=== PATIENT | male | born 1945 | race Caucasian/White ===

== ENCOUNTER 2023-01-22 15:38 | Emergency (ER) | payer MEDICARE, SELFPAY ==
[2023-01-22] VITALS (7 sets, daily range): BP systolic 127; BP diastolic 70; PULSE 63; RESP 18; TEMP 36.6; O2SAT 96–99
--- NOTE | 2023-01-22 16:13 | ED.GENADUL_ITS ---
Discharge Plan Disposition Patient Disposition: Home Discharge Details Clinical Impression: Acute asthma exacerbation Primary Care Provider: [place],Local ED Provider: Woody Montero Home Meds and New Rx's Prescriptions: New prednisone 50 mg tablet 50 mg PO DAILY 4 Days Qty: 4 0RF Continued tamsulosin 0.4 mg Capsule 0.8 mg PO DAILY albuterol 90 mcg/actuation Aerosol 2 mcg INHALATION PRN PRN rosuvastatin 5 mg Tablet 5 mg PO DAILY fluticasone furoate-vilanterol [Breo Ellipta] 100-25 mcg/dose Blister With Device 1 inh INHALATION DAILY Discharge Instructions Instructions: Asthma (ED) Additional Instructions: Please read all of the information that accompanies these instructions. You were seen in the emergency department for your shortness of breath. You most likely have an asthma exacerbation for which you should continue using your albuterol as previously prescribed. A prescription has been sent for several days of prednisone to your pharmacy. Please schedule an appointment with your primary care provider next week as needed. Please return to the emergency department if develop worsening shortness of breath chest pain fevers or have any other concerns.. Discharge Data Discharge Date/Time-TO BE ENTERED AT DEPARTURE: 01/22/23 17:31 Medical Decision Making This is an overall very well-appearing normothermic and not tachycardic nor hypoxic 78-year-old male with history of asthma with prolonged expiratory phase and mild wheeze concerning for acute exacerbation of reactive airway disease. No chest pain to suggest ACS. Not tachycardic nor does he have any risk factors for DVT so I am not concerned for PE. Not hypoxic so anticipate the patient will be appropriate for discharge. Patient is speaking in complete sentences so we will defer venous blood gas at this point time as I am not concerned for acute hypercarbia. Will attempt symptomatic treatment with prednisone and nebulized ipratropium albuterol and reassess. Patient is from [facility] and reports that he will be in the area for the next several days. Anticipate discharging the patient with a burst of prednisone giving him return indications and outpatient follow-up later this week and his PCP as needed. 5:15 PM Patient felt markedly improved following nebulized albuterol/ipratropium. On reassessment he no longer had prolonged expiratory phase. His chest x-ray was read as showing no acute cardiopulmonary findings. He did have a 2 wedge compression fracture age-indeterminate. He denies any back pain and any recent falls. I advised him to return to the emergency department if he developed any worsening shortness of breath fevers or had any other concerns. Otherwise will discharge with short burst of prednisone total of 5 days. He reports that he has albuterol that he can use as needed. HPI General Date/Time Provider Initiated Documentation: 01/22/23 16:02 . HPI Narrative: This is a 78-year-old male with history of reactive airway disease on outpatient daily Breo inhaler with as needed albuterol now with wheezing cough and increased shortness of breath. He says that he has had a cough and a runny nose for the past 4 days. 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 He has never had a PE nor DVT. He has been hospitalized in the past for exacerbation of reactive airway disease but this was approximately 20 years ago. He denies routine tobacco. He has had no fevers. He does have some chest discomfort secondary to coughing but he denies chest pain and syncope. He is in the area through the remainder of the week. Related Data Home Medications Medication Instructions Recorded Confirmed albuterol 90 mcg/actuation aerosol 2 mcg inhalation PRN PRN 01/22/23 01/22/23 inhaler fluticasone furoate 100 1 inh inhalation DAILY 01/22/23 01/22/23 mcg-vilanterol 25 mcg/dose inhalation powder (Breo Ellipta) prednisone 50 mg tablet 50 mg PO DAILY 4 days #4 tabs 01/22/23 rosuvastatin 5 mg tablet 5 mg PO DAILY 01/22/23 01/22/23 tamsulosin 0.4 mg capsule 0.8 mg PO DAILY 01/22/23 01/22/23 Previous Rx's Medication Instructions Recorded prednisone 50 mg tablet 50 mg PO DAILY 4 days #4 tabs 01/22/23 Allergies Allergy/AdvReac Type Severity Reaction Status Date / Time No Known Allergies Allergy Unverified 01/22/23 15:52 General Stated Complaint: RespSymp TUNDE: 3 PFSH All Active Problems (Updated 01/22/23 @ 17:23 by Woody Montero MD) Acute asthma exacerbation (Acute) Social History Smoking/Tobacco Use Status: Never Smoking risk assessment performed?: Yes Alcohol Intake: current Alcohol Intake frequency: 3 or more drinks per day Alcohol type: wine Substance use type: does not use Exam Narrative Exam Narrative: General: Well-appearing in no acute distress speaking in complete sentences. Head: Normocephalic, atraumatic. Eye: Pupils equal, round reactive to light. Extraocular eye movements intact. No conjunctival injection. No scleral icterus. Ear, nose, mouth, throat: Grossly normal inspection. Normal voice, handling secretions normally. Neck: Trachea midline. Cardiovascular: Well-perfused distal extremities. Regular rate and rhythm Respiratory: Nonlabored respiration. Mildly prolonged expiratory phase with mild end expiratory wheeze. No adventitious breath sounds. No rhonchi. Gastrointestinal: Nondistended abdomen. Musculoskeletal: No edema. Moving all 4 extremities spontaneously. Skin: Normal for age and race, grossly normal temperature and turgor. No acute rash. Neurologic: Alert and appropriate, no apparent acute deficits. Psychiatric: Mood and manner are appropriate. Grooming and personal hygiene are appropriate. Course Vital Signs Vital signs: Vital Signs Temperature 36.6 C 01/22/23 15:50 Pulse 63 01/22/23 15:50 Respiratory Rate 18 01/22/23 15:50 Blood Pressure 127/70 01/22/23 15:50 Pulse Oximetry 61 L 01/22/23 15:50 Temperature 36.6 C 01/22/23 15:50 Temperature Source Temporal Artery Scan 01/22/23 15:50 Pulse 63 01/22/23 15:50 Respiratory Rate 18 01/22/23 15:50 Respiratory Effort Normal, Non-Labored 01/22/23 16:03 Respiratory Depth Normal 01/22/23 16:03 Blood Pressure 127/70 01/22/23 15:50 Pulse Oximetry 61 L 01/22/23 15:50 Oxygen Delivery Method Room Air 01/22/23 15:50 Oxygen Flow Rate 0 01/22/23 15:50 PAWSS Have you Been Recently Intoxicated or Drunk Within the Last 30 days?: No Have you Ever Experienced Previous Episodes of Alcohol Withdrawal?: No Have you ever Experienced Withdrawal Seizures?: No Have you ever Experienced Delirium Tremens(DT)s?: No Have you ever undergone Alcohol Rehabilitation Treatment (i.e, inpt ot outpatient treatment programs)?: No Have you ever Experienced Blackouts?: No Have you ever Combined Alcohol with other Downers within the last 90 days?: No Have you ever Combined Alcohol with any other Substance of Abuse during the last 90 days?: No Positive Blood Alcohol level on Presentation? [PCS.BAL]: No Evidence of Increased Autonomic Activity (i.e. HR>120, tremor, sweating, agitation, nausea)?: No Result: 0
--- NOTE | 2023-01-22 16:15 | DI.RAD_ITS ---
Exam(s) XR CHEST 2V PA LATERAL EXAM: XR CHEST 2V PA LATERAL CLINICAL HISTORY: Shortness of breath. TECHNIQUE: 2D digital imaging was performed. COMPARISON: No exams were available for comparison FINDINGS: 2 views: Heart size is normal. The mediastinum is not widened. Hyperinflation. Lungs are clear. No infiltrates nor pleural effusions. There is a mild wedge compression fracture of a midthoracic vertebral body, probably T7 . IMPRESSION: No acute pulmonary findings. T7 wedge compression fracture, age indeterminate. DATA REPOSITORY: RADIATION DOSE DELIVERED:
[2023-01-22] MEDS: Albuterol/Ipratropium 3 ML UPD VIAL UPD (16:40)
[2023-01-22] MEDS: predniSONE 20 MG TAB 60 MG PO (16:40)
--- NOTE | 2023-01-22 17:19 | DI.VRAD_ITS ---
PROCEDURE INFORMATION: Exam: XR Chest Exam date and time: 01/22/2023 4:54 PM Age: 78 years old Clinical indication: Shortness of breath TECHNIQUE: Imaging protocol: Radiologic exam of the chest. Views: 2 views. COMPARISON: No relevant prior studies available. FINDINGS: Lungs: Lungs are mildly hyperexpanded, compatible chronic obstructive pulmonary physiologic changes. Pleural spaces: Unremarkable. No pleural effusion. No pneumothorax. Heart/Mediastinum: Normal. Bones/joints: Chronic-appearing mild anterior wedge deformity of a mid thoracic spine vertebral body. IMPRESSION: No acute cardiopulmonary abnormality. Dictated and Authenticated by: Coy Pena MD. Ordering:MY Mckay MD
== END 2023-01-22 17:31 | disposition home or self-care (01) ==
PROVIDERS: Emergency Provider Emergency Medicine
DX: J45.901 Unspecified asthma with (acute) exacerbation (principal)
CPT/HCPCS: 94640; 99284; 71046; J7512; J7620